=== PATIENT | male | born 1995 | race Caucasian/White ===

== ENCOUNTER 2018-02-10 20:25 | Emergency (ER) | payer OTHER, SELFPAY ==
[2018-02-10 20:29] VITALS: BP 116/62; PULSE 92; RESP 18; TEMP 37.4; O2SAT 96
--- NOTE | 2018-02-10 20:55 | ED.GENADUL_ITS ---
Discharge Plan Disposition Patient Disposition: HOME Condition: Stable Discharge Details Chief Complaint: Sorethroat Clinical Impression: Pharyngitis Primary Care Provider: [facility],[place] ED Provider: Leonarda Taylor Home Meds and New Rx's Prescriptions: No Action No Known Home Meds RF: 0 Discharge Instructions Instructions: Pharyngitis (ED) Additional Instructions: Gargle with salt water several times daily. You can try Chloraseptic throat spray, cough drops as well as Sucrets throat lozenges to help with sore throat. Alternate Tylenol and Motrin as needed and directed for pain. Drink plenty of fluids and get plenty of rest. Follow-up with your primary care doctor in 1 week for reevaluation. Return immediately to the emergency department any worsening or new concerning symptoms. Discharge Data Discharge Physician: Leonarda Taylor Medical Decision Making 22-year-old male who presents with sore throat since this morning. Also complaining of some left ear pain. Denies known fever. Vitals within normal limits. Patient appears nontoxic and in no acute distress. Minimal posterior erythema with punctate ulcers in the left posterior pharynx but no evidence of abscess, exudates. Uvula midline. No submandibular swelling. No lymphadenopathy. Lungs clear to auscultation. Rapid strep negative. Discussed with patient that his symptoms can be viral which can be treated best with symptomatic care including rest, fluids, Motrin and Tylenol. Also discussed that his rapid strep is negative but his symptoms may persist or worsen and can turn bacterial but for now no antibiotics are indicated. Also discussed that if his symptoms do progress or worsen, associated with fatigue and fever and worsening sore throat, this could possibly be mono but he has no acute signs on exam with consistent with this today. Will give a dose of Tylenol here. Patient instructed to follow-up with his primary care doctor in 1 week for reevaluation as needed and return here immediately if worse. HPI General Mode of arrival: ambulatory . Date/Time Provider Initiated Documentation: 02/10/18 20:54 . Limitations to Documentation: no limitations . Information obtained by: patient . HPI Narrative: Pt is a 22-year-old male who presents with sore throat since yesterday morning. Patient states he mainly feels the pain in the left side with pain with swallowing and with radiation to left ear. Patient took Motrin 3 hours ago. Patient denies known fever, rhinorrhea, cough. Past medical history: None Surgical history: Colon removal from esophagus Social history: Smokes tobacco, denies alcohol or drugs Medications: None Allergies: None PCP: does not know name but states he does have one Related Data Home Medications Medication Instructions Recorded Confirmed Unknown [No Known Home Meds] 12/01/15 02/10/18 Allergies Allergy/AdvReac Type Severity Reaction Status Date / Time No Known Allergies Allergy Unverified 02/10/18 20:32 General Stated Complaint: Sorethroat NOE: 4 Review of Systems Review of Systems All systems reviewed & are unremarkable except as noted in HPI and below PFSH Family History Mother Hypertension Medical History Acne (Acute) Cellulitis (Acute) Social History current occupational status: employed current occupation: Analysis Reporting Developer[employer] Smoking/Tobacco Use Status: Current every day Exam Const General: cooperative, healthy appearing and no acute distress HENMT Head: normal to inspection Ears: TM's normal bilaterally General nose exam: external nose normal and nares normal Face and sinus: normal facial exam and sinuses nontender Mouth: oral mucosae normal Teeth and gingiva: dentition normal Throat: uvula midline, no peritonsillar masses, no uvular edema and other ( Minimal posterior pharyngeal erythema. Scattered minimal punctate ulcers noted left posterior pharynx. No abscess, exudates. ) Eyes General: appearance normal, both eyes and all related structures Neck Neck: normal visual inspection, no lymphadenopathy and No submandibular swelling Resp Effort & Inspection: normal respiratory effort and able to speak in complete sentences Auscultation: clear to auscultation bilaterally Cardio Rate: regular rate Rhythm: regular rhythm Skin General skin exam: no rashes or lesions noted Neuro General: alert, awake and oriented x3 Motor: muscle tone normal throughout Extrem General: normal to inspection and full ROM Psych Appearance: grossly normal Affect: normal affect Course Vital Signs Temperature 99.3 F 02/10/18 20:29 Pulse 92 H 02/10/18 20:29 Respiratory Rate 18 02/10/18 20:29 Blood Pressure 116/62 02/10/18 20:29 Pulse Oximetry 96 02/10/18 20:29 Temperature 99.3 F 02/10/18 20:29 Temperature Source Temporal Artery Scan 02/10/18 20:29 Pulse 92 H 02/10/18 20:29 Respiratory Rate 18 02/10/18 20:29 Respiratory Effort Non-Labored 02/10/18 20:29 Blood Pressure 116/62 02/10/18 20:29 Pulse Oximetry 96 02/10/18 20:29 Oxygen Delivery Method Room Air 02/10/18 20:29 Oxygen Flow Rate 0 02/10/18 20:29 Pain Level 9 02/10/18 20:29 Lab/Test Results Lab/Test Results: 02/10/18 20:53 Pharynx Streptococcus Screen (ORESTES) - Pending POC Strep Test-LONNIE(Rapid) Start: 02/10/18 20: 52 Freq: Status: Active Protocol: Document 02/10/18 20:52 CDG (Rec: 02/10/18 20:52 CDG [id number]) Strep test-LONNIE(Rapid)-POC POC-Strep test-LONNIE (Rapid) Negative POC-Strep test-LONNIE (Rapid) Negative
[2018-02-10 21:12] VITALS: BP 116/62; PULSE 92; RESP 18; TEMP 37.4; O2SAT 96
== END 2018-02-10 21:11 | disposition home or self-care (01) ==
LOC: ER 21:28
PROVIDERS: Emergency Provider Physician Assistant
DX: J02.9 Acute pharyngitis, unspecified (principal); F17.210 Nicotine dependence, cigarettes, uncomplicated
CPT/HCPCS: 87880; 99282; 87081

== ENCOUNTER 2018-02-11 16:44 | Outpatient (REF) | payer OTHER, SELFPAY | END 2018-02-11 17:04 | LOC: LBN 16:44 | PROVIDERS: PCP Family Medicine; Visit Provider Family Medicine | DX: J02.9 Acute pharyngitis, unspecified (principal) | CPT/HCPCS: 87070 ==

== ENCOUNTER 2018-05-16 16:18 | Outpatient (CLI) | payer OTHER, SELFPAY ==
[2018-05-18 11:20] LABS: HIV-1/2 Ag & Ab Screen Negative (NEGAT)
[2018-05-18 12:17] LABS: Syphilis Serology (RPR) Negative (Negative)
== END 2018-05-16 16:38 ==
PROVIDERS: PCP Family Medicine; Visit Provider Family Medicine
DX: Z11.3 Encounter for screening for infections with a predominantly sexual mode of transmission (principal); Z11.4 Encounter for screening for human immunodeficiency virus [HIV]
CPT/HCPCS: 36415; 87389; 86592

== ENCOUNTER 2020-05-14 16:10 | Outpatient (REF) | payer OTHER, SELFPAY ==
[2020-05-16 13:17] LABS: COVID-19 RT-PCR UVMMC Result Negative (Negative)
== END 2020-05-14 16:30 ==
LOC: LBN 16:10
PROVIDERS: PCP Family Medicine; Visit Provider Physician Assistant
DX: J02.9 Acute pharyngitis, unspecified (principal)
CPT/HCPCS: U0003

== ENCOUNTER → 2023-03-22 02:48 | Outpatient (CLI) | payer BC, SELFPAY ==
--- NOTE | 2023-03-22 07:08 | DI.RAD_ITS ---
Exam(s) XR CERVICAL SPINE COMP 4-5V EXAM: XR CERVICAL SPINE COMP 4-5V CLINICAL HISTORY: Chronic neck pain,m54.2. TECHNIQUE: 2D digital imaging was performed. COMPARISON: No exams were available for comparison FINDINGS: Five views No evidence of fracture, listhesis, nor offset of the spinal laminar line. All the disc spaces exhib it normal height. Bone density normal. No osseous lesions. No cervical ribs. No Luschka joint ost eophytes. IMPRESSION: No significant radiographic findings on these five views of the cervical spine DATA REPOSITORY: RADIATION DOSE DELIVERED:
== END ==
PROVIDERS: PCP Family Medicine; Visit Provider Family Medicine
DX: M54.2 Cervicalgia (principal)
CPT/HCPCS: 72050

== ENCOUNTER 2025-01-16 02:39 | Outpatient (CLI) | payer BC, SELFPAY ==
[2025-01-16 15:59] LABS: Abs Immature Grans 0.05 10^3/uL (0.0-0.06); HCT 45.1 % (40.0-50.0); HGB 15.3 g/dL (13.5-17.5); Immature Grans % 0.5 %; MCH 32.6 pg (27.0-33.0); MCHC 33.9 % (32.0-36.0); MCV 96 fL (80-95); MPV 9.4 fL (8.0-11.0); Platelet Count 290 10^3/uL (130-400); RBC 4.69 10^6/uL (4.36-5.78); RDW 12.4 % (11.8-14.1); RDW-SD 43.6 fL; WBC 9.72 10^3/uL (4.4-10.8)
[2025-01-16 17:51] LABS: ALT 30 U/L (16-63); AST 22 U/L (15-37); Albumin 4.0 g/dL (3.4-5.0); Alkaline Phosphatase 85 U/L (46-116); Anion Gap 10.1 mmol/L (3-11); BUN 20 mg/dL (7-18); Bilirubin, Total 0.5 mg/dL (0.2-1.0); CO2 26.9 mmol/L (21.0-32.0); Calcium 8.7 mg/dL (8.5-10.1); Chloride 102 mmol/L (98-107); Estimated GFR 105.79 (mL/min/1.73m2); Glucose 97 mg/dL (74-106); Potassium 3.6 mmol/L (3.5-5.1); Sodium 139 mmol/L (136-145); TSH (W/Ref FT4) 0.63 uIU/mL (0.36-3.74); Total Protein 6.5 g/dL (6.4-8.2)
[2025-01-16 17:59] LABS: C-Reactive Protein < 0.50 mg/dL (<or=0.5)
[2025-01-17 19:16] LABS: HIV-1/2 Ag & Ab Screen Negative (Negative)
[2025-01-17 19:19] LABS: Hepatitis C Ab w Rflx HCV PCR Negative (Negative)
[2025-01-18 11:41] LABS: Lyme Ab w Rflx to Lyme Confirm Negative (Negative)
[2025-01-19 22:39] LABS: B. miyamotoi PCR Negative (Negative); Babesia divergens/MO-1 Negative (Negative); Ehrlichia muris eauclairensis Negative (Negative)
== END 2025-01-16 02:40 | disposition home or self-care (01) ==
LOC: LBO 02:39
PROVIDERS: PCP Family Medicine; Visit Provider Family Medicine
DX: R61 Generalized hyperhidrosis (principal)
CPT/HCPCS: 36415; 80053; 86803; 87389; 87798; 84443; 85025; 86140; 86618